=== PATIENT | male | born 1990 | race African-American/Black ===

== ENCOUNTER 2016-09-25 07:46 | Emergency (ER) | payer SELFPAY | END 2016-09-25 09:54 | disposition home or self-care (01) | LOC: ER 07:46 | PROC: 2W3DX1Z Immobilization of Left Lower Arm using Splint (ICD-10-PCS; principal; 2016-09-25) | DX: S29.012A Strain of muscle and tendon of back wall of thorax, initial encounter (principal); S63.502A Unspecified sprain of left wrist, initial encounter; F17.200 Nicotine dependence, unspecified, uncomplicated; J45.909 Unspecified asthma, uncomplicated; Z91.013 Allergy to seafood; Z91.02 Food additives allergy status; X58.XXXA Exposure to other specified factors, initial encounter | CPT/HCPCS: 96372; 99284; J1885; J2360 ==

== ENCOUNTER 2016-10-30 13:04 | Emergency (ER) | payer SELFPAY | END 2016-10-30 13:35 | disposition home or self-care (01) | LOC: ER 13:04 | PROC: 2W3CX1Z Immobilization of Right Lower Arm using Splint (ICD-10-PCS; principal; 2016-10-30) | DX: S66.911A Strain of unspecified muscle, fascia and tendon at wrist and hand level, right hand, initial encounter (principal); S29.011A Strain of muscle and tendon of front wall of thorax, initial encounter; H11.31 Conjunctival hemorrhage, right eye; Z91.013 Allergy to seafood; Z91.018 Allergy to other foods; Y04.0XXA Assault by unarmed brawl or fight, initial encounter | CPT/HCPCS: 71100-RT; 73130-RT; 99284 ==